=== PATIENT | male | born 1995 | race Hispanic/Latino ===

== ENCOUNTER 2020-09-19 09:13 | Emergency (ER) | payer OTHER ==
[2020-09-19 10:07] LABS: Urine Blood 3+ (Negative); Urine Glucose Negative (Negative); Urine Protein 2+ (Negative); Urine Specific Gravity >=1.030 (1.005-1.030); Urine pH 6.5 (5.0-7.0)
[2020-09-19 10:08] LABS: Absolute Lymphocytes (CBC) 2.8 K/uL (0.7-4.9); Basophils % 0.5 % (0-1.3); Hematocrit 47.2 % (39.6-49.0); Lymphocytes % 27.1 % (15.3-44.8); MPV 7.4 fL (7.6-11.3); RBC Red Blood Cell Count 5.26 M/uL (4.33-5.43)
[2020-09-19 10:16] LABS: Potassium 3.8 mmol/L (3.5-5.1)
[2020-09-19] MEDS ORDERED: KETOROLAC 30 MG/ML INJ ONE (10:16)
[2020-09-19] MEDS ORDERED: NA CHLORIDE 0.9% 1,000 ML ONE (10:16)
--- NOTE | 2020-09-19 10:33 | RAD REPORT ---
EXAM DESCRIPTION: CT - Stone Protocol - 09/19/2020 10:11 am CLINICAL HISTORY: Flank pain. FLANK PAIN COMPARISON: No comparisons TECHNIQUE: Axial images were obtained without oral or IV contrast. Lack of contrast limits solid org an and vascular assessment. The [id number] spans the entirety of the system partially obscuring uppermost abdomen and lung bases. Coronal reformatted images were obtained and reviewed. All CT scans are performed using dose optimization technique as appropriate and may include automated exposure control or mA/KV adjustment according to patient size. FINDINGS: The lower lung berg are clear. Imaged portions of the liver and spleen show no suspicious findings on non-contrast imaging. The panc reas and adrenal glands are normal. No pathologic lymphadenopathy in the abdomen or pelvis. 6 mm stone is present at the right UVJ with mild right hydronephrosis and hydroureter present. No bowel obstruction, free air, free fluid or abscess. Normal appendix noted. No significant bony abnormality. IMPRESSION: 6 mm stone is present at the right UVJ resulting in mild right hydronephrosis and hydrou reter.
--- NOTE | 2020-09-19 10:44 | ER ---
Nurse's Notes [facility] Name: Evert Lenz Jr Age: 24 yrs Sex: Male : 1995 Arrival Date: 09/19/2020 Time: 09:15 Bed 17 Private MD: Diagnosis: Hydronephrosis with renal and ureteral calculous obstruction Presentation: 09/19 09:29 Chief complaint: Patient states: Dysuria with dribbling when urinating for 1 day. ll1 Recently treated for UTI, but stopped his antibiotics when he felt better. No fever. Coronavirus screen: Client denies travel out of the [place] in the last 14 days. At this time, the client does not indicate any symptoms associated with coronavirus-19. Ebola Screen: Patient denies travel to an Ebola-affected area in the 21 days before illness onset. Initial Sepsis Screen: Does the patient meet any 2 criteria? No. Patient's initial sepsis screen is negative. Does the patient have a suspected source of infection? Yes: Dysuria/Frequency/Urgency/UTI. Risk Assessment: Do you want to hurt yourself or someone else? Patient reports no desire to harm self or others. Onset of symptoms was September 19, 2020. 09:29 Method Of Arrival: Ambulatory ll1 09:29 Acuity: RUBIO 3 ll1 Historical: - Allergies: 09:31 No Known Allergies; ll1 - PMHx: 09:31 None; ll1 - PSHx: 09:31 ACL-L; jaw sx; ll1 - Immunization history:: Adult Immunizations up to date. - Social history:: Smoking status: Reported history of juuling and/or vaping. Screenin:35 Abuse screen: Denies threats or abuse. Nutritional screening: No deficits noted. ll1 Tuberculosis screening: No symptoms or risk factors identified. Fall Risk IV access (20 points). Total Langston Fall Scale indicates No Risk (0-24 pts). Assessment: 09:35 General: Appears uncomfortable, Behavior is calm, cooperative, appropriate for age. ll1 Pain: Complains of pain in right flank Quality of pain is described as aching, throbbing. Neuro: No deficits noted. Cardiovascular: No deficits noted. Respiratory: No deficits noted. GI: Abdomen is flat, Bowel sounds present X 4 quads. Abd is soft and non tender X 4 quads. Reports upper abdominal pain. : Urine is clear, blood found with urine dip Reports burning with urination, pain with urination, urgency, urinary frequency, dribbling. Vital Signs: 09:29 BP 137 / 93; Pulse 81; Resp 16; Temp 98.2; Pulse Ox 99% ; Weight 95.25 kg; Height 6 ft. ll1 0 in. (182.88 cm); Pain 8/10; 10:54 BP 129 / 94; Pulse 71; Resp 16; Pulse Ox 100% on R/A; Pain 3/10; ll1 09:29 Body Mass Index 28.48 (95.25 kg, 182.88 cm) ll1 ED Course: 09:15 Patient arrived in ED. ds1 09:22 Osito Fontana PA is PHCP. jr8 09:22 Harsha Jacobo MD is Attending Physician. jr8 09:23 Mariela Daly RN is Primary Nurse. ll1 09:23 Arm band placed on Patient placed in an exam room, on a stretcher. ll1 09:30 Triage completed. ll1 09:50 Inserted saline lock: 20 gauge in right antecubital area, using aseptic technique. ll1 Blood collected. 10:11 CT Stone Protocol In Process Unspecified. EDMS 10:57 Patient has correct armband on for positive identification. Bed in low position. Call ll1 light in reach. Side rails up X 1. Pulse ox on. NIBP on. 10:59 No provider procedures requiring assistance completed. IV discontinued, intact, ll1 bleeding controlled, No redness/swelling at site. Pressure dressing applied. Administered Medications: 10:01 Drug: NS 0.9% 1000 ml Route: IV; Rate: 1000 ml; Site: right antecubital; ll1 11:01 Follow up: Response: No adverse reaction; IV Status: Completed infusion; IV Intake: ll1 800ml 10:02 Drug: TORadol - (ketorolac) 15 mg Route: IVP; Site: right antecubital; ll1 11:01 Follow up: Response: No adverse reaction; RASS: Alert and Calm (0) ll1 Intake: 11:01 IV: 800ml; Total: 800ml. ll1 Outcome: 10:43 Discharge ordered by . jr8 10:59 Patient left the ED. ll1 10:59 Discharged to home ambulatory. ll1 10:59 Condition: stable 10:59 Discharge instructions given to patient, Instructed on discharge instructions, follow up and referral plans. medication usage, Demonstrated understanding of instructions, follow-up care, medications, Prescriptions given X 2. Signatures: Dispatcher [employer] [facility] RedJorjei ds1 Osito Fontana PA PA jr8 Mariela Daly RN RN ll1
--- NOTE | 2020-09-19 10:44 | EDPHYS ---
Physician Documentation [facility] Name: Evert Lenz Jr Age: 24 yrs Sex: Male : 1995 Arrival Date: 09/19/2020 Time: 09:15 Bed 17 Private MD: ANDREAS Physician Harsha Jacobo HPI: 09/19 10:13 This 24 yrs old Male presents to ER via Ambulatory with complaints of flank jr8 pain and trouble urinating. 10:13 The patient complains of pain in the right flank. The pain radiates to the abdomen. jr8 Onset: The symptoms/episode began/occurred acutely, today. Modifying factors: The symptoms are alleviated by nothing. the symptoms are aggravated by urinating. Associated signs and symptoms: Pertinent positives: dribbling of urine. Severity of pain: At its worst the pain was moderate. The patient has not experienced similar symptoms in the past. The patient has not recently seen a physician. Patient seen last month for UTI like symptoms. Saw urology and had urinalysis done showing blood. Was put on Abx. Stated that he felt better. Today had to urinate but could only dribble out urine. Now with right flank pain . Historical: - Allergies: 09: No Known Allergies; ll1 - PMHx: : None; ll1 - PSHx: : ACL-L; jaw sx; ll1 - Immunization history:: Adult Immunizations up to date. - Social history:: Smoking status: Reported history of juuling and/or vaping. ROS: 10:13 Eyes: Negative for injury, pain, redness, and discharge, ENT: Negative for injury, jr8 pain, and discharge, Neck: Negative for injury, pain, and swelling, Cardiovascular: Negative for chest pain, palpitations, and edema, Respiratory: Negative for shortness of breath, cough, wheezing, and pleuritic chest pain, Abdomen/GI: Negative for abdominal pain, nausea, vomiting, diarrhea, and constipation, MS/Extremity: Negative for injury and deformity, Skin: Negative for injury, rash, and discoloration, Neuro: Negative for headache, weakness, numbness, tingling, and seizure. 10:13 Back: Positive for flank pain, on the right. 10:13 : Positive for small amounts, hematuria, Negative for penile discharge, penile pain, testicular pain Exam: 10:13 Constitutional: This is a well developed, well nourished patient who is awake, alert, jr8 and in no acute distress. Cardiovascular: Regular rate and rhythm with a normal S1 and S2. No gallops, murmurs, or rubs. Normal PMI, no JVD. No pulse deficits. Respiratory: Lungs have equal breath sounds bilaterally, clear to auscultation and percussion. No rales, rhonchi or wheezes noted. No increased work of breathing, no retractions or nasal flaring. Abdomen/GI: Soft, non-tender, with normal bowel sounds. No distension or tympany. No guarding or rebound. No evidence of tenderness throughout. Skin: Warm, dry with normal turgor. Normal color with no rashes, no lesions, and no evidence of cellulitis. MS/ Extremity: Pulses equal, no cyanosis. Neurovascular intact. Full, normal range of motion. Neuro: Awake and alert, GCS 15, oriented to person, place, time, and situation. Cranial nerves II-XII grossly intact. Motor strength 5/5 in all extremities. Sensory grossly intact. 10:13 Back: CVA tenderness, that is mild, is noted on the right. Vital Signs: 09:29 BP 137 / 93; Pulse 81; Resp 16; Temp 98.2; Pulse Ox 99% ; Weight 95.25 kg; Height 6 ft. ll1 0 in. (182.88 cm); Pain 8/10; 10:54 BP 129 / 94; Pulse 71; Resp 16; Pulse Ox 100% on R/A; Pain 3/10; ll1 09:29 Body Mass Index 28.48 (95.25 kg, 182.88 cm) ll1 MDM: 09:25 Patient medically screened. thom 10:42 Data reviewed: vital signs, nurses notes, lab test result(s), radiologic studies, CT jr8 scan. Data interpreted: Pulse oximetry: on room air is 99 %. Interpretation: normal. Counseling: I had a detailed discussion with the patient and/or guardian regarding: the historical points, exam findings, and any diagnostic results supporting the discharge/admit diagnosis, lab results, radiology results, the need for outpatient follow up, a urologist, to return to the emergency department if symptoms worsen or persist or if there are any questions or concerns that arise at home. Response to treatment: the patient's symptoms have markedly improved after treatment, patient is well hydrated. 09/19 09:41 Order name: Basic Metabolic Panel [facility] 09/19 09:41 Order name: CBC with Diff [facility] 09/19 09:41 Order name: CT Stone Protocol; Complete Time: 10:42 [facility] 09/19 09:42 Order name: Basic Metabolic Panel; Complete Time: 10:21 [facility] 09/19 09:42 Order name: CBC with Automated Diff; Complete Time: 10:21 [facility] 09/19 10:06 Order name: Urine Dipstick-Ancillary; Complete Time: 10:21 [facility] 09/19 09:41 Order name: IV Saline Lock; Complete Time: 09:47 09/19 09:41 Order name: Labs collected and sent; Complete Time: 09:47 09/19 09:41 Order name: Urine Dipstick-Ancillary (obtain specimen); Complete Time: 10:02 [facility] Administered Medications: 10:01 Drug: NS 0.9% 1000 ml Route: IV; Rate: 1000 ml; Site: right antecubital; ll1 11:01 Follow up: Response: No adverse reaction; IV Status: Completed infusion; IV Intake: ll1 800ml 10:02 Drug: TORadol - (ketorolac) 15 mg Route: IVP; Site: right antecubital; ll1 11:01 Follow up: Response: No adverse reaction; RASS: Alert and Calm (0) ll1 Disposition: 09/20 07:50 Co-signature as Attending Physician, Harsha Jacobo MD I agree with the assessment and thom plan of care. Disposition: 09/19/20 10:43 Discharged to Home. Impression: Hydronephrosis with renal and ureteral calculous obstruction. - Condition is Stable. - Discharge Instructions: Kidney Stones, Hydronephrosis. - Prescriptions for Tylenol- Codeine #3 300-30 mg Oral Tablet - take 2 tablets by ORAL route every 4-6 hours As needed; 16 tablet. Flomax 0.4 mg Oral Capsule, Sust. Release 24 hr - take 1 capsule by ORAL route once daily 1/2 hour following the same meal each day; 30 capsule. - Medication Reconciliation Form, Thank You Letter, Antibiotic Education, Prescription Opioid Use, Work release form form. - Follow up: Private Physician; When: 2 - 3 days; Reason: Recheck today's complaints, Continuance of care, Re-evaluation by your physician. - Problem is new. - Symptoms have improved. Signatures: Dispatcher [employer] EDHarsha Son MD MD cha Roszak, Josh, PA PA jr8 Mariela Daly, RN RN ll1 Corrections: (The following items were deleted from the chart) 09/19 10:59 10:43 09/19/2020 10:43 Discharged to Home. Impression: Hydronephrosis with renal and ll1 ureteral calculous obstruction. Condition is Stable. Forms are Medication Reconciliation Form, Thank You Letter, Antibiotic Education, Prescription Opioid Use. Follow up: Private Physician; When: 2 - 3 days; Reason: Recheck today's complaints, Continuance of care, Re-evaluation by your physician. Problem is new. Symptoms have improved. jr8
[2020-09-19 11:05] VITALS: TEMP 98.2
[2020-09-19 11:06] VITALS: BP 129/94; O2SAT 100
== END 2020-09-19 10:59 | disposition home or self-care (01) ==
LOC: ER 09:13
DX: N13.2 Hydronephrosis with renal and ureteral calculous obstruction (principal); F17.290 Nicotine dependence, other tobacco product, uncomplicated
CPT/HCPCS: 96361; 85025; 80048; 36415; 81003; 76377; 74176; 96374; 99284; J7030